=== PATIENT | male | born 1955 | race Caucasian/White ===

== ENCOUNTER 2017-07-16 18:04 | Emergency (ER) | payer MEDICAID ==
[~2017-07-16] VITALS: Ht 167.6 cm; Wt 82.0 kg
[~2017-07-16 18:04] MED LIST: CIPR500T4 PO; HYDR-3498 PO; HYDR-762 PO; IBUP800T25 PO; LEVO500T72 PO; TAMS-14 PO
[2017-07-16 18:08] VITALS: Ht 167.6 cm; Wt 82.0 kg
[2017-07-16] MEDS ORDERED: ONDANSETRON (ODT) 4 MG TAB ODT STA (20:34)
--- NOTE | 2017-07-16 20:34 | ERD ---
ER Documentation Chief Complaint Date/Time DATE: 07/16/17 TIME: 20:29 Chief Complaint FEVER WITH BODY PAIN FOR PAST FEW DAYS HPI This 62-year-old male patient presents to emergency department today with complaint of fever and body aches starting today, SOB and cough, pt sates tactile fever, pt repots that his girlfriend is sick here today also. pt has tried taking tylenol last taken 1600, pt repors vomiting after eating ROS All systems reviewed and are negative except as per history of present illness. Medications Home Meds Active Scripts Guaifenesin/Dextromethorphan (Mucinex Dm ER 1,200-60 mg Tab) 1 Each Tbmp.12hr, 1 EACH PO QID for 3 Days, TAB Prov:ROSA,OFELIA 07/16/17 Azithromycin* (Azithromycin*) 250 Mg Tablet, 250 MG PO DAILY, #4 TAB Prov:ROSA,OFELIA 07/16/17 Tamsulosin Hcl* (Flomax*) 0.4 Mg Cap.er.24h, 0.4 MG PO BID, #30 CAP Prov:MICHAEL RASMUSSEN DO 09/07/15 Ibuprofen* (Motrin*) 800 Mg Tab, 800 MG PO TID, #20 TAB Prov:JOHN CUELLAR 09/07/15 Ciprofloxacin Hcl* (Ciprofloxacin Hcl*) 500 Mg Tablet, 500 MG PO BID for 10 Days , TAB Prov:JOHN CUELLAR 09/07/15 Hydrocodone Bit-Acetaminophen* ([place]*) 10-325 Mg Tablet, 1 TAB PO Q6 Y for PAIN , #20 TAB Prov:JOHN CUELLAR 09/07/15 Levofloxacin* (Levaquin*) 500 Mg Tablet, 500 MG PO DAILY for 7 Days, TAB Prov:ZEB ROGERS MD 09/07/15 Hydrocodone Bit-Acetaminophen* ([place]*) 5-325 Mg Tab, 1 TAB PO Q6 Y for PAIN for 3 Days, TAB Prov:ZEB ROGERS MD 09/07/15 Allergies Allergies: Coded Allergies: No Known Allergy (Unverified , 09/07/15) PMhx/Soc History of Surgery: No Anesthesia Reaction: No Hx Neurological Disorder: No Hx Respiratory Disorders: No Hx Cardiac Disorders: No Hx Psychiatric Problems: No Hx Miscellaneous Medical Probl: No Hx Alcohol Use: No Hx Substance Use: No Hx Tobacco Use: No Smoking Status: Never smoker Physical Exam Vitals Vital Signs Date Time Temp Pulse Resp B/P Pulse Ox O2 Delivery O2 Flow Rate FiO2 07/16/17 18:08 99.6 98 18 138/90 99 Vitals stable, triage notes reviewed Physical Exam Const: Well-nourished well-appearing, well-hydrated no acute distress Head: Eyes: Normal Conjunctiva, PERRLA, EOM ENT: Normal External Ears, Nose and Mouth mucous membranes Neck: Full range of motion..~ No meningismus. Resp: Coughs with deep breathing, clearing rhonchi Cardio: S1-S2, no S3-S4, regular rate and rhythm Abd: Skin: Back: Ext: Neur: Awake and alert Psych: Normal Mood and Affect Results 24 hrs Current Medications Medications (Trade) Dose Ordered Sig/Thaddeus Route PRN Reason Start Time Stop Time Status Last Admin Dose Admin Ibuprofen (Motrin) 400 mg ONCE ONCE PO 07/16/17 21:00 07/16/17 21:01 DC 07/16/17 20:47 Ondansetron HCl (Zofran Odt) 4 mg ONCE STAT ODT 07/16/17 20:34 07/16/17 20:37 DC 07/16/17 20:44 Procedures/MDM This 62-year-old male patient presents to emergency department with cough, fever , chills, vomiting, shortness of breath. Patient reports sudden onset starting 2 days ago. Patient is unaware of max temperature reports tactile fever, chills , and body aches. I have low suspicion for bacterial meningitis, viral meningitis, congestive heart failure, pneumothorax, hemothorax, pulmonary embolism. Patient's history and physical exam supports a respiratory infection , influenza a/B- for evidence of influenza. Chest x-ray shows heart size is upper normal limits with atherosclerotic calcifications in thoracic aorta, mild elevation of the left hemidiaphragm, mild atelectasis of the retrocardiac medial left lung base, the lungs are otherwise clear no signs of pleural fluid or pneumothorax seen. The osseous structures and soft tissues are unremarkable. Patient will be treated for a clinical pneumonia with azithromycin 500 mg to be given now, prescription for 250 mg days 2 through 4., and Mucinex DM 4 times daily 3 days as needed cough. Increase fluids, increase rest, Tylenol and Motrin for fever reduction, return to emergency department if symptoms fail to improve as anticipated. I feel the patient is stable for discharge at this time. I have discussed results, examination findings, the treatment plan with the patient and family present prior to discharge. Indications for emergent reevaluation, side effects of medication were also discussed. All questions were answered. Patient verbalizes understanding and agrees with plan of care. Departure Diagnosis: Primary Impression: Pneumonia Pneumonia type: due to unspecified organism Laterality: left Lung location : unspecified part of lung Qualified Code: J18.9 - Pneumonia of left lung due to infectious organism, unspecified part of lung Condition: Good Patient Instructions: Pneumonia (Adult) Additional Instructions: Thank you for for coming to [facility] for your care today. Please ask your nurse or provider if you have questions about your care today and do not leave until all your questions have been answered. Please use any medications given as directed and follow-up with your doctor (or the doctor you were referred to) in the next 2-3 days. If you do not have a primary care doctor you may follow up at the [facility] (listed below). You may also use motrin and tylenol as needed for fever and/or pain unless instructed otherwise by your provider or nurse. Indications for more urgent follow-up have been discussed, but you may return to the Emergency Department at ANY time for any worrisome or worsening symptoms. If you have abdominal pain, please know that no test or exam you received is perfect and you should follow up within 8 hours for continued pain. If you had any imaging studies today, such as an X-Ray or CT Scan, these studies will be reviewed later by a radiologist. You will be called if there are important findings that were not identified today, so make sure the contact information you provided at registration is correct. If you received any narcotic pain control medicine today, such as Vicodin, Morphine or Dilaudid, your coordination and judgment may be affected for a number of hours. Please do not drive or operate heavy machinery, and you may want someone to assist you at home. If you were given a prescription for narcotic medication, be aware that it is very addictive- use sparingly and only if necessary. OFELIA LEE Jul 16, 2017 20:34
[2017-07-16] MEDS ORDERED: IBUPROFEN 200 MG TAB PO ONE (21:00)
--- NOTE | 2017-07-16 22:19 | RADRPT ---
PROCEDURE: XR Chest. CLINICAL INDICATION: Fever and cough. TECHNIQUE: PA and Lateral views of the chest were obtained. COMPARISON: None. FINDINGS: Heart size is at upper limits of normal. Atherosclerotic calcifications in the thoracic aorta. Mil d elevation of the left hemidiaphragm. Mild atelectasis at the retrocardiac medial left lung base. The lungs are otherwise clear. No signs of pleural fluid or pneumothorax are seen. The osseous struc tures and soft tissues are unremarkable. IMPRESSION: 1. Mild atelectasis at the retrocardiac medial left lung base. 2. Otherwise, no evidence for active cardiopulmonary disease. RPTAT: [facility] Physician Don Date Time Electronically viewed and signed by Physician Don on 07/16/2017 22:19 RS/
[2017-07-16] MEDS ORDERED: GUAI1TBM PO (23:15)
[2017-07-16] MEDS ORDERED: AZIT250T6 PO (23:15)
[2017-07-16] MEDS ORDERED: AZITHROMYCIN 250 MG TAB PO ONE (23:30)
[2017-07-17 00:05] VITALS: PULSE 88; RESP 20; TEMP 98.1
== END 2017-07-16 23:35 | disposition home or self-care (01) ==
LOC: FTE 18:04
DX: J18.9 Pneumonia, unspecified organism (principal)
CPT/HCPCS: 71020; 87400; Z7502; Z7610

== ENCOUNTER 2017-07-28 14:08 | Outpatient (CLI) | payer MEDICAID ==
[~2017-07-28] VITALS: Ht 175.3 cm; Wt 78.9 kg
[2017-07-28 14:30] VITALS: BP 139/75; PULSE 93; RESP 18; Ht 175.3 cm; Wt 78.9 kg
--- NOTE | 2017-07-28 15:31 | PN ---
Date/Time of Note Date/Time of Note DATE: 07/28/17 TIME: 15:17 Outpatient Progress Note Chief Complaint Bronchitis/BPH HPI Bronchitis/patient was recently hospitalized with acute bronchitis, patient had fever, still has minimal cough, no hemoptysis, no chest pain, patient finished antibiotic, lasted for a few days, BPH/no frequency urgency, no blood in the urine, no suprapubic discomfort or distention, Renal stone/patient's past kidney stone long time ago, no pain, Review of Systems Const: No Fever, no chills, no Wt. loss, no Fatigue, normal appetite, no diaphoresis. Eyes: No pain, no discharge, no redness, no visual change, no foreign body. ENT: No pain, no bleeding, no congestion, no sore throat, no dysphagia, no discharge or rhinitis. Lymph: No adenopathy, no tender nodes, no lymphedema. Resp: No SOB, slight cough, no sputum, no wheezing, no chest pain. CV: No chest pain, no palpitaions, no [place], no PND, no edema. GI: Normal appetite, no pain, no nausea, no vomiting, no diarrhea, no blood, no constipation. : No frequency, no urgency, no dysuria, no hematuria, no flank pain, no discharge, no bleeding. Musc: No back pain, no neck pain, no knee pain, no restricted ROM. Skin: No rash, no skin lesions, no erythema, no laceration, no bruising, no pruritus. Neuro: No BERG, no dizziness, no syncope, no seizure, no focal-weakness. Endo: No polyuria, no polydypsia, no dry-skin, no temp-intolerance. Psych: No hallucinations, no depression, no anxiety, no suicidal ideation. Ext: No edema, no pain, no ulcer, no weakness. Physical Exam Vital Signs Date Time Temp Pulse Resp B/P Pulse Ox O2 Delivery O2 Flow Rate FiO2 07/28/17 14:30 98.2 93 18 139/75 98 Room Air General Appearance: A 62 year-old male who appears well-developed, well- nourished, in no acute distress. HEENT: Head normocephalic, atraumatic. Pupils equal, round, reactive to light and accommodate. Sclerae are no jaundice. Nasal turbinates pink without erythema or nasal discharge. Mucous membranes pink and moist without lesions. Oropharynx clear without any exudate or discharge. NECK: Supple. Trachea midline, No thyromegaly, No cervical lymphadenopathy, No mass, No carotid bruits, No JVD, Carotid pulses 2+ bilaterally. PULMONARY: Clear to auscultaion bilaterally, No retractions, Chest expansion symmetric bilaterally, no rales, no ronchi, no dulness on percussion. CARDIAC: Normal SI and S2, Regular rate and rythm, no murmur, gallop, or rub. GASTROINTESTINAL: Abdomen is soft, non-tender, Non Rigid, No distention, Positive bowel sounds x4 quadrants, Liver normal. SKIN: Warm, dry, no rash, no bruise, no echmosis. EXTREMITIES: Bilateral lower extremities normal, no edema, no phlabitus, pulse palpable, no contracture. MUSCULOSKELETAL: Spine Normal, Non-tender, Normal range of motion, No swelling, no deformity, no clubbing, or cyanosis, the patient has no edema to bilateral lower extremities, dorsalis pedis pulses palpable bilaterally. NEUROLOGIC: The patient is awake, alert, oriented, responding to yes/no questions appropriately, moving all extremities, cranial nerve intact, normal strenght, normal power, normal coordination, normal gait. Allergies Coded Allergies: No Known Allergy (Unverified , 07/18/17) PMH Bronchitis/sepsis/BPH/history of kidney stone passing Social Hx No smoking no drinking, Family Hx Noncontributory Patient History: Hypertension Assessment/Plan Impression Sepsis/bronchitis resolving BPH History of kidney stone passed Plan Patient education done, patient still had minimal cough, no fever chill, patient antibiotic is done, no other symptoms, no recent fever, Patient does not have any problem with urination, will monitor closely, discussed with the patient if there is any symptoms to let us know, patient to follow with the primary care physician, Medications Home Meds No Active Prescriptions or Reported Meds ROLANDO GEORGE MD Jul 28, 2017 15:28
== END 2017-07-28 16:38 | disposition home or self-care (01) ==
LOC: DCC 14:08
PROVIDERS: ATTEND Internal Medicine
DX: J40 Bronchitis, not specified as acute or chronic (principal); N40.0 Benign prostatic hyperplasia without lower urinary tract symptoms; Z87.442 Personal history of urinary calculi
CPT/HCPCS: G0463

== ENCOUNTER 2018-01-05 22:34 | Emergency (ER) | END 2018-01-06 01:00 | disposition home or self-care (01) ==